=== PATIENT | female | born 1960 | race Two or more races ===

== ENCOUNTER 2022-09-27 21:41 | Emergency (ER) | payer OTHER ==
[~2022-09-27] VITALS: Ht 160 cm; Wt 89.8 kg
--- NOTE | 2022-09-27 23:12 | NUR ---
BIB FAMILY FOR C/O WORSENING LOWER BACK PAIN X 2 MONTHS -TRAUMA OR INJURY. PT AWAKE AND ALERT X4 BREATHJING UNLABORED. MD WAS AT BEDSIDE FOR EVAL.
[2022-09-27] MEDS ORDERED: MORPHINE SULFATE INJ 4 MG/ML DISP.SYRIN ONE (23:17)
[2022-09-27] MEDS ORDERED: CARISOPRODOL 350 MG TABLET ONE (23:17)
[2022-09-27] MEDS ORDERED: DEXAMETHASONE SOD PHOSPHATE 10 MG/ML VIAL ONE (23:17)
--- NOTE | 2022-09-27 23:29 | NUR ---
PT BEING TRANSPORTED TO CT VIA [facility]
[2022-09-27] MEDS ORDERED: MORPHINE SULFATE INJ 2 MG/ML DISP.SYRIN IM ONE (23:30)
[2022-09-27] MEDS ORDERED: CARISOPRODOL 350 MG TABLET PO ONE (23:30)
[2022-09-27] MEDS ORDERED: DEXAMETHASONE SOD PHOSPHATE 4 MG/ML VIAL IM ONE (23:30)
--- NOTE | 2022-09-27 23:39 | NUR ---
PT RETURNED FROM CT VIA [facility]
[2022-09-28] MEDS ORDERED: CARI350T PO (00:02)
[2022-09-28] MEDS ORDERED: HYDR-3972 PO (00:03)
[2022-09-28] MEDS ORDERED: PRED50TA PO (00:03)
--- NOTE | 2022-09-28 00:36 | NUR ---
Patient discharged to home in stable condition. Written and verbal after care instructions given. Patient verbalizes understanding of instruction. ASSISTED VIA WHEELCHAIT TO CAR AND PICKED UP BY .
[2022-09-28 00:37] VITALS: BP 176/93
== END 2022-09-28 00:37 | disposition home or self-care (01) ==
LOC: ER 21:43
DX: M43.8X6 Other specified deforming dorsopathies, lumbar region (principal); M54.41 Lumbago with sciatica, right side; I10 Essential (primary) hypertension; E11.9 Type 2 diabetes mellitus without complications; M19.90 Unspecified osteoarthritis, unspecified site; Z90.49 Acquired absence of other specified parts of digestive tract; Z88.8 Allergy status to other drugs, medicaments and biological substances; Z79.899 Other long term (current) drug therapy
CPT/HCPCS: 99284; 72131; 96372 ×2; J1100; J2270

== ENCOUNTER 2023-02-12 19:51 | Emergency (ER) | payer OTHER ==
[~2023-02-12] VITALS: Ht 160 cm; Wt 91.2 kg
[~2023-02-12 19:51] MED LIST: CARI350T PO; HYDR-3972 PO; PRED50TA PO
[2023-02-12 21:01] VITALS: BP 181/88
--- NOTE | 2023-02-12 21:43 | NUR ---
LAC 20G PIV STARTED. BLOOD DRAWN
[2023-02-12 22:05] LABS: BASOPHILS # (AUTO) 0.1 K/uL (0.0-0.2); BASOPHILS % (AUTO) 0.5 % (0.0-2.0); EOSINOPHILS % (AUTO) 0.9 % (0.0-6.0); HEMATOCRIT 33 % (33-45); HEMOGLOBIN 9.9 g/dL (11.5-14.8); LYMPHOCYTES # (AUTO) 2.1 K/uL (0.8-4.8); LYMPHOCYTES % (AUTO) 17.4 % (20.0-44.0); MEAN CORPUSCULAR HGB CONC 30 g/dl (31.0-36.0); MEAN CORPUSCULAR VOLUME 75 fL (82-100); MONOCYTES % (AUTO) 8.6 % (2.0-12.0); NEUTROPHILS # (AUTO) 8.6 K/uL (1.8-8.9); NEUTROPHILS % (AUTO) 72.6 % (43.0-81.0); PLATELET COUNT (AUTO) 400 K/uL (150-450); RED BLOOD CELL COUNT(AUTO) 4.41 MIL/uL (4.0-5.2); WHITE BLOOD COUNT (AUTO) 11.8 K/uL (4.3-11.0)
[2023-02-12 22:21] LABS: BILIRUBIN,URINE NEGATIVE (NEGATIVE); COLOR,URINE YELLOW (YELLOW); LEUKOCYTE ESTERASE ,URINE NEGATIVE (NEGATIVE); NITRITE, URINE NEGATIVE (NEGATIVE); PROTEIN,URINE TRACE mg/dl (NEGATIVE); UGLUCOSE NEGATIVE (NEGATIVE); UROBILINOGEN,URINE 0.2 EU/dL (0.2)
[2023-02-12] MEDS ORDERED: MAG HYDROX/AL HYDROX/SIMETH 30 ML UDC PO ONE (22:30)
[2023-02-12] MEDS ORDERED: PANTOPRAZOLE 40 MG VIAL IV ONE (22:30)
[2023-02-12] MEDS ORDERED: KETOROLAC TROMETHAMINE INJ 30 MG/ML VIAL IV ONE (22:30)
[2023-02-12] MEDS ORDERED: LIDOCAINE VISCOUS 2% UD 15 ML UDC MM ONE (22:30)
[2023-02-12 22:32] LABS: BACTERIA,URINE Moderate /HPF (None Seen); RBC,URINE 0-2 /HPF (0-2); SQUAMOUS EPITHELIAL CELL,UR Many /HPF (None Seen)
[2023-02-12 22:36] LABS: CALCIUM, SERUM 8.8 mg/dL (8.5-10.1); CREATININE 1.2 mg/dL (0.6-1.3)
[2023-02-12] MEDS ORDERED: PANTOPRAZOLE 40 MG VIAL ONE (22:38)
[2023-02-12] MEDS ORDERED: KETOROLAC TROMETHAMINE 15 MG/ML VIAL ONE (22:38)
[2023-02-12] MEDS ORDERED: MAG HYDROX/AL HYDROX/SIMETH 30 ML UDC ONE (22:39)
[2023-02-12] MEDS ORDERED: LIDOCAINE VISCOUS 2% UD 15 ML UDC ONE (22:39)
[2023-02-12 22:42] LABS: ALBUMIN 3.2 g/dL (3.4-5.0); BILIRUBIN,DIRECT 0.1 mg/dL (0.0-0.2); BILIRUBIN,TOTAL 0.2 mg/dL (0.2-1.0); TOTAL PROTEIN, SERUM 7.4 g/dL (6.4-8.2)
[2023-02-13] MEDS ORDERED: PANT40TA2 PO (00:27)
[2023-02-13] MEDS ORDERED: KETO10TA2 PO (00:27)
[2023-02-13] MEDS ORDERED: CYCL5TAB PO (00:27)
--- NOTE | 2023-02-13 00:32 | NUR ---
Patient discharged to home in stable condition. Written and verbal after care instructions given. Patient verbalizes understanding of instruction.
[2023-02-13 01:57] LABS: BAND % (MANUAL) 2 % (0.0-5.0); BASOPHILS % (MANUAL) 0 % (0.0-2.0); EOSINOPHILS % (MANUAL) 0 % (0-4); LYMPHOCYTES % (MANUAL) 16 % (16-48); MONOCYTES % (MANUAL) 7 % (0-11.0); NEUTROPHILS % (MANUAL) 75 (42-76)
== END 2023-02-13 00:33 | disposition home or self-care (01) ==
LOC: ER 19:53
DX: M54.41 Lumbago with sciatica, right side (principal); I10 Essential (primary) hypertension; E11.9 Type 2 diabetes mellitus without complications; Z90.49 Acquired absence of other specified parts of digestive tract; Z79.899 Other long term (current) drug therapy; Z88.1 Allergy status to other antibiotic agents
CPT/HCPCS: 99285; 96374; 71045; 96375; 93005; 85025; 80048; 87086; 83690; 80076; 81001; 36415; 84484; 85007; C9113; J1885